=== PATIENT | male | born 1975 | race Caucasian/White ===

== ENCOUNTER 2019-03-21 13:36 | Emergency (ER) | payer MEDICAID ==
[~2019-03-21] VITALS: Ht 177.8 cm; Wt 86.4 kg
[~2019-03-21 13:36] MED LIST: ALBU18HF2 INH; ALBU8.5H4 IH; ALBU8.5H8 IH; CLIN-96 PO; ONDA8TAB9 PO; PRED20TA PO; RIS2T CORPAK; RIS2T PO; ZIPR60CA5 PO
[2019-03-21 14:52] LABS: BASOPHILS % (AUTO) 0.4 % (0-1); EOSINOPHILS # (AUTO) 0.6 X10'3 (0-0.9); EOSINOPHILS % (AUTO) 8.8 % (0-6); HEMATOCRIT 41.5 % (42.0-52.0); LYMPHOCYTES # (AUTO) 2.9 X10'3 (1.1-4.8); LYMPHOCYTES % (AUTO) 44.5 % (21-51); MEAN CORPUSCULAR HEMOGLOBIN 31.1 PG (27.0-31.0); MEAN CORPUSCULAR HGB CONC 33.6 g/dL (33.0-36.5); MEAN CORPUSCULAR VOLUME 92.7 FL (78-98); MEAN PLATELET VOLUME 7.5 FL (7.4-10.4); MONOCYTES # (AUTO) 0.5 X10'3 (0-0.9); NEUTROPHILS # (AUTO) 2.5 X10'3 (1.8-7.7); NEUTROPHILS % (AUTO) 38.3 % (42-75); PLATELET COUNT 251 X10'3 (140-440); RED BLOOD COUNT 4.48 X10'6 (4.70-6.10); RED CELL DISTRIBUTION WIDTH 15.8 % (11.5-14.5); WHITE BLOOD COUNT 6.6 X10'3 (4.5-11.0)
[2019-03-21 15:03] LABS: ALANINE AMINOTRANSFERASE 27 U/L (12-78); ALBUMIN 3.6 G/DL (3.4-5.0); ALBUMIN/GLOBULIN RATIO 1.2 (1.1-1.5); ALKALINE PHOSPHATASE 78 IU/L (46-116); ANION GAP 5 (8-16); ASPARTATE AMINO TRANSFERASE 12 U/L (10-37); BILIRUBIN,TOTAL 0.3 MG/DL (0.1-1.0); BLOOD UREA NITROGEN 14 MG/DL (7-18); BUN/CREATININE RATIO 17.7 (5.4-32.0); CHLORIDE 104 MMOL/L (99-107); CREATININE 0.79 MG/DL (0.60-1.10); GLUCOSE 113 MG/DL (70-104); SODIUM 139 MMOL/L (135-145); TOTAL CARBON DIOXIDE 29.7 MMOL/L (24-32); TOTAL PROTEIN 6.6 G/DL (6.4-8.2); eGFR > 90 ML/MIN
[2019-03-21 15:06] LABS: PARTIAL THROMBOPLASTIN TIME 26 SECONDS (22-32)
[2019-03-21] MEDS ORDERED: PRED10TA PO (15:28)
[2019-03-21 15:40] VITALS: BP 127/70
== END 2019-03-21 15:43 | disposition home or self-care (01) ==
LOC: ER 13:36
DX: J45.901 Unspecified asthma with (acute) exacerbation (principal); F31.9 Bipolar disorder, unspecified; F17.200 Nicotine dependence, unspecified, uncomplicated; F15.90 Other stimulant use, unspecified, uncomplicated; Z79.2 Long term (current) use of antibiotics; Z79.899 Other long term (current) drug therapy
CPT/HCPCS: 36415; 71045; 80053; 84484; 85025; 85610; 85730; 93005; 99284

== ENCOUNTER 2019-07-28 17:37 | Emergency (ER) | payer MEDICAID ==
[~2019-07-28] VITALS: Ht 172.7 cm; Wt 80.0 kg
[~2019-07-28 17:37] MED LIST changes: +CLIN-90 PO; -CLIN-96 PO; +PRED10TA PO; -PRED20TA PO
[2019-07-28 18:22] VITALS: BP 134/81
[2019-07-29] MEDS ORDERED: PRED20TA PO (03:53)
[2019-07-29] MEDS ORDERED: AZIT250T PO (03:53)
[2019-07-29] MEDS ORDERED: ALBU18HF2 INH (03:53)
== END 2019-07-28 18:40 | disposition home or self-care (01) ==
LOC: ER 17:37
DX: H53.8 Other visual disturbances (principal); R50.9 Fever, unspecified; J45.909 Unspecified asthma, uncomplicated; F31.9 Bipolar disorder, unspecified; F15.90 Other stimulant use, unspecified, uncomplicated; Z79.899 Other long term (current) drug therapy
CPT/HCPCS: 99284

== ENCOUNTER 2019-07-29 00:54 | Emergency (ER) | payer MEDICAID ==
[2019-07-29 01:10] VITALS: BP 134/77
[2019-07-29] MEDS ORDERED: ipratropium/albuterol 3ml nebule NEB ONE ×2 (03:00→03:05)
[2019-07-29] MEDS ORDERED: predniSONE 20 mg tablet PO ONE (03:05)
[2019-07-29] MEDS ORDERED: albuterol 2.5 MG/3 ML nebule NEB ONE (03:05)
[2019-07-29 03:26] LABS: BASOPHILS # (AUTO) 0.1 X10'3 (0-0.2); BASOPHILS % (AUTO) 0.5 % (0-1); EOSINOPHILS # (AUTO) 0.8 X10'3 (0-0.9); EOSINOPHILS % (AUTO) 6.9 % (0-6); LYMPHOCYTES # (AUTO) 3.1 X10'3 (1.1-4.8); LYMPHOCYTES % (AUTO) 26.5 % (21-51); MEAN CORPUSCULAR HGB CONC 34.1 g/dL (33.0-36.5); MEAN PLATELET VOLUME 7.4 FL (7.4-10.4); MONOCYTES # (AUTO) 0.6 X10'3 (0-0.9); MONOCYTES % (AUTO) 5.3 % (2-12); NEUTROPHILS # (AUTO) 7.1 X10'3 (1.8-7.7); NEUTROPHILS % (AUTO) 60.8 % (42-75); PLATELET COUNT 281 X10'3 (140-440); RED CELL DISTRIBUTION WIDTH 13.6 % (11.5-14.5); WHITE BLOOD COUNT 11.7 X10'3 (4.5-11.0)
[2019-07-29 03:39] LABS: ALANINE AMINOTRANSFERASE 42 U/L (12-78); ALBUMIN 3.6 G/DL (3.4-5.0); ALBUMIN/GLOBULIN RATIO 1.1 (1.1-1.5); ALKALINE PHOSPHATASE 85 IU/L (46-116); ANION GAP 8 (8-16); ASPARTATE AMINO TRANSFERASE 34 U/L (10-37); BILIRUBIN,TOTAL 0.3 MG/DL (0.1-1.0); BLOOD UREA NITROGEN 15 MG/DL (7-18); CALCIUM 8.4 MG/DL (8.5-10.1); CHLORIDE 105 MMOL/L (99-107); CREATININE 0.75 MG/DL (0.60-1.10); GLUCOSE 127 MG/DL (70-104); POTASSIUM 3.7 MMOL/L (3.5-5.1); SODIUM 139 MMOL/L (135-145); TOTAL CARBON DIOXIDE 26.4 MMOL/L (24-32); TOTAL PROTEIN 6.9 G/DL (6.4-8.2); eGFR > 90 ML/MIN
[2019-07-29 03:46] LABS: MAGNESIUM 2.1 MG/DL (1.5-2.4)
[2019-07-29] MEDS ORDERED: PRED20TA PO (03:53)
[2019-07-29] MEDS ORDERED: ALBU18HF2 INH (03:53)
[2019-07-29] MEDS ORDERED: AZIT250T PO (03:53)
== END 2019-07-29 04:05 | disposition home or self-care (01) ==
LOC: ER 00:54
DX: J44.1 Chronic obstructive pulmonary disease with (acute) exacerbation (principal); F31.9 Bipolar disorder, unspecified; F17.200 Nicotine dependence, unspecified, uncomplicated; F15.90 Other stimulant use, unspecified, uncomplicated; F10.99 Alcohol use, unspecified with unspecified alcohol-induced disorder; Z59.0 Homelessness; Z79.899 Other long term (current) drug therapy; Y90.9 Presence of alcohol in blood, level not specified
CPT/HCPCS: 36415; 71046; 80053; 83735; 83880; 84484; 85025; 93005; 94640; 99284; J7512; 94760

== ENCOUNTER 2019-08-01 00:25 | Emergency (ER) | payer MEDICAID ==
[~2019-08-01] VITALS: Ht 172.7 cm; Wt 87.3 kg
[~2019-08-01 00:25] MED LIST changes: +AZIT250T PO; +PRED20TA PO
[2019-08-01] MEDS ORDERED: ipratropium/albuterol 3ml nebule NEB ONE (00:35)
[2019-08-01] MEDS ORDERED: dexamethasone 4mg tablet PO ONE (00:45)
[2019-08-01] MEDS ORDERED: triamcinolone acetonide 40mg/ml inj IM ONE (01:20)
[2019-08-01] MEDS ORDERED: albuterol 2.5 MG/3 ML nebule NEB ONE (01:20)
[2019-08-01 01:42] VITALS: BP 123/40
== END 2019-08-01 02:55 | disposition home or self-care (01) ==
LOC: ER 00:26
DX: J44.1 Chronic obstructive pulmonary disease with (acute) exacerbation (principal); F31.9 Bipolar disorder, unspecified; F15.90 Other stimulant use, unspecified, uncomplicated; F10.99 Alcohol use, unspecified with unspecified alcohol-induced disorder; Z59.0 Homelessness; Z72.89 Other problems related to lifestyle; Z79.2 Long term (current) use of antibiotics; Z79.899 Other long term (current) drug therapy; Y90.9 Presence of alcohol in blood, level not specified
CPT/HCPCS: 94640; 96372; 99284; J3301; 94760